=== PATIENT | female | born 1995 | race Caucasian/White ===

== ENCOUNTER → 2016-06-06 | Outpatient (CLI) | payer BC | END | disposition home or self-care (01) | LOC: CFH 13:28 | PROVIDERS: ATTEND Family Medicine | DX: M75.81 Other shoulder lesions, right shoulder (principal) ==

== ENCOUNTER 2019-06-22 15:14 | Emergency (ER) | payer BC ==
[~2019-06-22] VITALS: Ht 154.9 cm; Wt 61.0 kg
[2019-06-22 15:18] VITALS: BP 148/85
--- NOTE | 2019-06-22 16:11 | NUR ---
Cauterizer provided, relieved pressure, slow dry blood flow.
--- NOTE | 2019-06-22 16:27 | NUR ---
Patient/Caregiver given discharge instructions and they have confirmed that they understand the instructions. Patient ambulatory with steady gait. alumifoam splint applied prior to dc.
== END 2019-06-22 16:29 | disposition home or self-care (01) ==
LOC: ED 15:35
DX: S60.051A Contusion of right little finger without damage to nail, initial encounter (principal); X58.XXXA Exposure to other specified factors, initial encounter; Y93.89 Activity, other specified; Y92.89 Other specified places as the place of occurrence of the external cause; Y99.8 Other external cause status
CPT/HCPCS: 11740; 99284